=== PATIENT | male | born 1990 | race Caucasian/White ===

== ENCOUNTER 2017-10-29 22:30 | Emergency (ER) | payer MEDICAID, OTHER | END 2017-10-30 02:43 | disposition home or self-care (01) | LOC: FTE 22:30 | DX: R00.2 Palpitations (principal); F12.90 Cannabis use, unspecified, uncomplicated; F17.210 Nicotine dependence, cigarettes, uncomplicated | CPT/HCPCS: 71045; 93005; 99284-25 ==